=== PATIENT | male | born 1960 | race Two or more races ===

== ENCOUNTER 2022-09-07 06:09 | Inpatient (IN) | payer MEDICARE, MEDICAID ==
[2022-09-04 12:38] LABS: Hematocrit 40.9 % (41.0-53.0); Hemoglobin 13.7 g/dL (13.5-17.5); Mean Corpuscular Hemoglobin 30.9 pg (28.0-32.0); Mean Corpuscular Hgb Conc. 33.6 g/dL (32.0-36.0); Red Blood Cells 4.44 10^6/uL (4.5-5.90); Red Cell Distribution Width 13.3 % (11.8-14.3); White Blood Cell 8.8 10^3/uL (4.4-10.8)
[2022-09-04 12:41] LABS: Urine Bacteria NONE SEEN /hpf (None Seen); Urine Blood Negative /uL (Negative); Urine Hyaline Cast FEW /lpf (0 - 2); Urine Specific Gravity 1.019 (1.001-1.035); Urine WBC 1 /hpf (0 - 3)
[2022-09-04 12:43] LABS: Band Neutrophils % (manual) 0; Basophils % (manual) 0 (0.0-2.0); Blast Cells 0; Metamyelocytes % 0; Myelocytes % 0; Promyelocytes % 0
[2022-09-04 12:55] LABS: INR 0.96 (0.9-1.15)
[2022-09-04 13:20] LABS: Albumin 4.1 g/dL (3.4-5.0); Bilirubin, Total 0.6 mg/dL (0.2-1.0); Calcium 9.3 mg/dL (8.5-10.1); Potassium 4.7 mmol/L (3.5-5.1); Total Protein 7.4 g/dL (6.4-8.2)
[2022-09-04 15:12] LABS: Eosinophils % (manual) 3 (0-7); Lymphocytes % (manual) 27 (10.0-50.0); Monocytes % (manual) 4 (0-12); Reactive Lymphocytes 4
[~2022-09-07] VITALS: Ht 190.5 cm; Wt 130.2 kg
[~2022-09-07 06:09] MED LIST: ESCI10TA PO; GABA300C10 PO; GLIP10TA9 PO; HYDR-4902 PO; HYDR25TA5 PO; LISI40TA11 PO; MELO1TAB56 PO; PANT40TA2 PO
[2022-09-07] MEDS ORDERED: BUPIVACAINE W/ EPINEPH 0.25% INJ 50ML MDV ONE (06:38)
[2022-09-07] MEDS ORDERED: ceFAZolin 1GM/50ML 100 ML IV ONE (06:49)
[2022-09-07] MEDS ORDERED: LIDOCAINE 1%HCL (LOCAL ANESTH) 10 ML MDV ONE (06:52)
[2022-09-07] MEDS ORDERED: BUPIVACAINE 0.25% INJ 50ML VIAL ONE (06:52)
[2022-09-07] MEDS ORDERED: KETOROLAC TROMETH 30 MG/ML 1ML VIAL ONE (07:07)
[2022-09-07] MEDS ORDERED: PROPOFOL 10 MG/ML 20 ML IV ONE ×2 (07:07→07:46)
[2022-09-07] MEDS ORDERED: LIDOCAINE 2% (LOCAL ANESTH.) PF 5ml SDV ONE (07:07)
[2022-09-07] MEDS ORDERED: DexAMETHasone SOD PHOS 10MG/1ML VIAL INJ ONE (07:07)
[2022-09-07] MEDS ORDERED: ONDANSETRON HCL 4 MG/2 ML VIAL ONE (07:07)
[2022-09-07] MEDS ORDERED: GLYCOPYRROLATE 0.2 MG/ML 1ML VIAL ONE (07:07)
[2022-09-07] MEDS ORDERED: fentaNYL CITRATE 100 MCG/2 ML VL ONE (07:09)
[2022-09-07] MEDS ORDERED: KETAMINE HCL 10 ML ONE (07:09)
[2022-09-07] MEDS ORDERED: ePHEDrine SULFATE 50 MG/ML AMP ONE (07:48)
[2022-09-07] MEDS ORDERED: SODIUM CHLORIDE LOCK 10 ML ONE ×2 (07:48→11:06)
[2022-09-07] MEDS ORDERED: ESMOLOL HCL 10 ML IV ONE (08:02)
[2022-09-07] MEDS ORDERED: ceFAZolin 1GM VL ONE (11:06)
[2022-09-07] MEDS ORDERED: CEPH500C PO (12:11)
[2022-09-07] MEDS ORDERED: HYDR-4798 PO (12:11)
[2022-09-07] MEDS ORDERED: hydrALAZINE HCL 20 MG/ML VL IV PRN (13:30)
[2022-09-07] MEDS ORDERED: DEXTROSE (50%) 50ML SYRG IV PRN (13:30)
[2022-09-07] MEDS ORDERED: ONDANSETRON HCL 4 MG/2 ML VIAL IV PRN (13:30)
[2022-09-07 15:44] VITALS: BP 127/68
[2022-09-07] MEDS: ceFAZolin 1GM/50ML 50 ML IV SCH ×2 (15:44→22:17)
[2022-09-07] MEDS: SODIUM CHLORIDE 0.9% 1,000 ML IV SCH (15:47)
[2022-09-07] MEDS: ACCU-CHEK COMFORT CURVE STRIP VI SCH ×2 (18:14→23:55)
[2022-09-07] MEDS: InsuLIN REG 1unit/0.01ml Soln (100units/ml) SC SCH (18:16)
[2022-09-07 22:00] VITALS: BP 134/50
[2022-09-08] MEDS: HYDROcodone-ACET 5/325MG TAB PO PRN ×4 (00:01→21:41)
[2022-09-08] MEDS: SODIUM CHLORIDE 0.9% 1,000 ML IV SCH ×2 (02:50→06:17)
[2022-09-08 05:00] VITALS: BP 125/49
[2022-09-08] MEDS: ACCU-CHEK COMFORT CURVE STRIP VI SCH ×3 (05:58→16:42)
[2022-09-08] MEDS: InsuLIN REG 1unit/0.01ml Soln (100units/ml) SC SCH ×4 (06:02→16:53)
[2022-09-08] MEDS: ceFAZolin 1GM/50ML 50 ML IV SCH ×3 (06:03→21:40)
[2022-09-08 06:33] LABS: Potassium 4.8 mmol/L (3.5-5.1)
[2022-09-08 06:38] LABS: BUN/Creatinine Ratio 22.9
[2022-09-08] MEDS: MORPHINE SULFATE INJ 2 MG/ml SYRG IV PRN ×3 (06:51→17:14)
[2022-09-08 08:11] LABS: Basophils # (auto) 0 10 ^3/uL (0-0.2); Basophils % (auto) 0.1 % (0.0-2.0); Eosinophils # (auto) 0 10 ^3/uL (0-0.8); Hematocrit 35.6 % (41.0-53.0); Lymphocytes % (auto) 6.1 % (10.0-50.0); Mean Corpuscular Hemoglobin 31.3 pg (28.0-32.0); Mean Corpuscular Hgb Conc. 33.8 g/dL (32.0-36.0); Mean Corpuscular Volume 92.6 fL (80.0-100.0); Monocytes # (auto) 1.3 10 ^3/uL (0-1.3); Neutrophils # (auto) 13.6 10 ^3/uL (1.6-8.6); Neutrophils % (auto) 85.8 % (37.0-80.0); Red Blood Cells 3.85 10^6/uL (4.5-5.90); White Blood Cell 15.9 10^3/uL (4.4-10.8)
[2022-09-08 08:44] VITALS: BP 147/78
[2022-09-08] MEDS ORDERED: glipiZIDE 5 MG TAB PO ONE (09:45)
[2022-09-08] MEDS: GABAPENTIN 300 MG CAP PO SCH (11:29)
[2022-09-08] MEDS: LISINOPRIL 20 MG TAB PO SCH (11:29)
[2022-09-08 12:31] VITALS: BP 122/55
[2022-09-08 16:50] VITALS: BP 119/46
[2022-09-08 22:00] VITALS: BP 119/66
[2022-09-09] MEDS: ACCU-CHEK COMFORT CURVE STRIP VI SCH ×4 (00:03→16:54)
[2022-09-09] MEDS: InsuLIN REG 1unit/0.01ml Soln (100units/ml) SC SCH ×4 (00:07→17:14)
[2022-09-09] MEDS: MORPHINE SULFATE INJ 2 MG/ml SYRG IV PRN ×2 (01:48→08:43)
[2022-09-09 05:00] VITALS: BP 126/57
[2022-09-09] MEDS: ceFAZolin 1GM/50ML 50 ML IV SCH ×3 (05:16→21:07)
[2022-09-09] MEDS: SODIUM CHLORIDE 0.9% 1,000 ML IV SCH ×2 (05:30→20:00)
[2022-09-09] MEDS: HYDROcodone-ACET 5/325MG TAB PO PRN ×3 (05:32→16:50)
[2022-09-09 06:18] LABS: Basophils # (auto) 0 10 ^3/uL (0-0.2); Basophils % (auto) 0.1 % (0.0-2.0); Eosinophils # (auto) 0 10 ^3/uL (0-0.8); Hematocrit 33.3 % (41.0-53.0); Hemoglobin 11.4 g/dL (13.5-17.5); Lymphocytes # (auto) 2.3 10 ^3/uL (0.4-5.4); Lymphocytes % (auto) 17.2 % (10.0-50.0); Mean Corpuscular Hemoglobin 31.7 pg (28.0-32.0); Mean Corpuscular Hgb Conc. 34.3 g/dL (32.0-36.0); Mean Corpuscular Volume 92.4 fL (80.0-100.0); Monocytes # (auto) 1.4 10 ^3/uL (0-1.3); Monocytes % (auto) 10.7 % (0.0-12.0); Neutrophils # (auto) 9.5 10 ^3/uL (1.6-8.6); Red Cell Distribution Width 13.1 % (11.8-14.3); White Blood Cell 13.2 10^3/uL (4.4-10.8)
[2022-09-09] MEDS: glipiZIDE 5 MG TAB PO SCH (06:26)
[2022-09-09 06:46] LABS: BUN/Creatinine Ratio 27.4; Calcium 8.7 mg/dL (8.5-10.1); Potassium 4.2 mmol/L (3.5-5.1)
[2022-09-09 08:00] VITALS: BP 118/53
[2022-09-09] MEDS: GABAPENTIN 300 MG CAP PO SCH ×2 (08:42→21:08)
[2022-09-09] MEDS: LISINOPRIL 20 MG TAB PO SCH (08:43)
[2022-09-09] MEDS ORDERED: HYDROmorphone HCL 2 MG/ML VL/or syr IV PRN (10:00)
[2022-09-09 12:00] VITALS: BP 128/72
[2022-09-09 16:00] VITALS: BP 100/38
[2022-09-09] MEDS: ACETAMINOPHEN 500 MG TAB PO PRN (21:33)
[2022-09-09 21:40] VITALS: BP 104/32
[2022-09-10] MEDS: ACCU-CHEK COMFORT CURVE STRIP VI SCH ×3 (00:13→11:34)
[2022-09-10] MEDS: HYDROcodone-ACET 5/325MG TAB PO PRN (03:53)
[2022-09-10 05:00] VITALS: BP 106/56
[2022-09-10] MEDS: ceFAZolin 1GM/50ML 50 ML IV SCH ×2 (05:50→13:10)
[2022-09-10] MEDS: InsuLIN REG 1unit/0.01ml Soln (100units/ml) SC SCH ×3 (05:54→11:36)
[2022-09-10] MEDS: glipiZIDE 5 MG TAB PO SCH (07:22)
[2022-09-10 08:00] VITALS: BP 119/65
[2022-09-10] MEDS: GABAPENTIN 300 MG CAP PO SCH (09:04)
[2022-09-10] MEDS: LISINOPRIL 20 MG TAB PO SCH (09:05)
[2022-09-10] MEDS: SODIUM CHLORIDE 0.9% 1,000 ML IV SCH (09:08)
[2022-09-10 12:00] VITALS: BP 118/59
[2022-09-10 12:51] VITALS: BP 118/59
[2022-09-10] MEDS: ACETAMINOPHEN 500 MG TAB PO PRN (13:09)
== END 2022-09-10 14:57 | disposition home or self-care (01) | DRG 503 ==
LOC: SUR 06:09 → OVERFLOW 13:30 → CENTRAL 15:09
PROVIDERS: ADMIT Internal Medicine; ATTEND Internal Medicine
PROC: 0L8P3ZZ Division of Left Lower Leg Tendon, Percutaneous Approach (ICD-10-PCS; 2022-09-07)
PROC: 0SGJ04Z Fusion of Left Tarsal Joint with Internal Fixation Device, Open Approach (ICD-10-PCS; principal; 2022-09-07 07:35)
DX: S93.315A Dislocation of tarsal joint of left foot, initial encounter (principal); A41.9 Sepsis, unspecified organism; N17.0 Acute kidney failure with tubular necrosis; E11.22 Type 2 diabetes mellitus with diabetic chronic kidney disease; Z20.822 Contact with and (suspected) exposure to COVID-19; E66.9 Obesity, unspecified; I12.9 Hypertensive chronic kidney disease with stage 1 through stage 4 chronic kidney disease, or unspecified chronic kidney disease; X58.XXXA Exposure to other specified factors, initial encounter; N18.30 Chronic kidney disease, stage 3 unspecified; Z68.35 Body mass index [BMI] 35.0-35.9, adult; Y93.89 Activity, other specified; Y92.89 Other specified places as the place of occurrence of the external cause; Y99.8 Other external cause status
CPT/HCPCS: 36415; 73630; 73650; 76000; 80048; 80053; 81001; 82962; 83036; 85007; 85025; 85027; 85610; 85730; 97110; 97116; 97163; G0378; J0690; J1100; J1815; J1885; J2001; J2405; J2704; J3490